=== PATIENT | female | born 1975 | race Caucasian/White ===

== ENCOUNTER 2016-12-20 18:43 | Emergency (ER) | payer MEDICARE, MEDICAID ==
[2016-12-20] MEDS ORDERED: Sodium Chloride 0.9% 10 ML Syringe FLUSH PRN (19:18)
[2016-12-20] MEDS ORDERED: HYDROmorphone 0.5 MG/0.5 ML Syringe IVPUSH ONE (19:32)
[2016-12-20] MEDS ORDERED: Famotidine 20 MG/2 ML SDV IVPUSH ONE (19:32)
[2016-12-20] MEDS ORDERED: Ondansetron 4 MG/2 ML SDV IVPUSH ONE (19:32)
[2016-12-20] MEDS ORDERED: Sodium Chloride 0.9% 1,000 ML IV SCH (19:45)
[2016-12-20] MEDS ORDERED: Metoclopramide 10 MG/2 ML SDV IVPUSH ONE (21:06)
[2016-12-20 21:37] VITALS: BP 124/96
--- NOTE | 2016-12-20 21:37 | EDM.PDOC ---
ED HPI GI/ABDOMINAL - General Chief Complaint: Abdominal Pain Stated Complaint: ABDOMINAL PAIN Time Seen by Provider: 12/20/16 19:16 Source of Information: Reports: Patient, RN notes reviewed - History of Present Illness INITIAL COMMENTS - FREE TEXT/NARRATIVE: 41-year-old female comes in with abdominal pain, nausea vomiting. Her symptoms started yesterday afternoon about 26 hours ago. She ate barbecued ribs yesterday noon and became ill about 2 or 3 hours later. She does have history of known gallbladder disease. He states her "ejection fraction" of the gallbladder is very low, she is actually scheduled for gallbladder surgery in about 2 weeks. When questioned about eating fatty food she made a comment along the line that is "they have not bothered me in the past" which is a bit hard to understand with her already having had extensive gallbladder workup. At any rate she became very ill after eating the ribs yesterday. She had onset of upper abdominal discomfort associated with nausea vomiting. Today she continues to be extremely nauseated. She states that time she has felt hungry and does try to eat but then has become worse after eating. She's not having diarrhea. She does not think she is constipated. She did have a BM earlier today. No fever or chills. - Related Data Allergies/ADRs: Allergies Allergy/AdvReac Type Severity Reaction Status Date / Time No Known Allergies Allergy Verified 06/30/16 07:16 Home Meds: Home Meds Celecoxib 200 mg PO DAILY 01/11/16 [History] Omeprazole 20 mg PO DAILY 01/11/16 [History] Propranolol HCl 60 mg PO BID 01/11/16 [History] Topiramate 25 mg PO BID 01/11/16 [History] traZODone HCl [Trazodone HCl] 200 mg PO DAILY 01/11/16 [History] Ondansetron [Zofran ODT] 4 mg PO Q6H #20 tab.dis 06/30/16 [Rx] Albuterol Sulfate [Proair Hfa] 2 inh PO QID PRN 12/20/16 [History] Budesonide/Formoterol Fumarate [Symbicort 160-4.5 Mcg Inhaler] 2 inh PO BID [History] Flunisolide [Aerospan] 5.1 gm IH DAILY 12/20/16 [History] Montelukast Sodium [Singulair] 10 mg PO DAILY 12/20/16 [History] oxyCODONE HCl/Acetaminophen [Percocet 5-325 mg Tablet] 1 each PO Q6H PRN [History] Past Medical History HEENT History: Reports: Allergic rhinitis, Sinusitis, Other (see below) Other HEENT History: glasses, partial and permanent bridge Cardiovascular History: Reports: High cholesterol Respiratory History: Reports: Bronchitis, recurrent, COPD Gastrointestinal History: Reports: Cholelithiasis, GERD, Irritable bowel syndrome Genitourinary History: Reports: UTI, recurrent, Other (see below) Other Genitourinary History: 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: Endometriosis, Fibroids, Other (see below) Other OB/BYN History: , miscarriage, ovarian cysts, fibroids, dysplasia, dysmenoorhea, heavy menses Other Musculoskeletal History: R foot pain, low back pain Neurological History: Reports: Migraines, Other (see below) Other Neuro History: course tremors Psychiatric History: Reports: Anxiety, Bipolar, Depression Dermatologic History: Reports: Other (see below) Other Dermatologic History: keloid scar - Past Surgical History Female Surgical History: Reports: Breast implant, D&C, Hysterectomy, Tubal ligation Social & Family History - Tobacco Use Smoking Status *Q: Current Every Day Smoker Years of Tobacco use: 30 Packs/Tins Daily: 1 Second Hand Smoke Exposure: Yes - Caffeine Use Caffeine Use: Reports: Coffee - Alcohol Use Days Per Week of Alcohol Use: 0 Number of Drinks Per Day: 0 Total Drinks Per Week: 0 - Recreational Drug Use Recreational Drug Use: No ED ROS GENERAL - Review of Systems Review Of Systems: See Below Constitutional: Reports: chills. Denies: fever HEENT: Denies: Throat pain Respiratory: Denies: Shortness of Breath, Pleuritic Chest Pain, Cough Cardiovascular: Denies: Chest pain GI/Abdominal: Reports: Abdominal pain (Upper abdominal primarily,in the mid abdominal as well), Nausea, Vomiting. Denies: Constipation, Diarrhea, Hematochezia, Melena Musculoskeletal: Denies: back pain (No major back discomfort), joint pain Skin: Reports: no symptoms Neurological: Reports: Dizziness (Mild) ED EXAM, GI/ABD - Physical Exam Exam: See Below General Appearance: alert, moderate distress Eyes: bilateral: normal appearance Throat/Mouth: Normal inspection, Normal oropharynx Head: atraumatic. No: facial swelling Neck: supple, full range of motion Respiratory/Chest: no respiratory distress, lungs clear, normal breath sounds Cardiovascular: regular rate, rhythm GI/Abdominal: soft, tenderness (Mild tenderness upper mid abdomen, right upper quadrant, periumbilical area of abdomen, lower abdomen soft and nontender). No : guarding, rebound Back Exam: No: CVA tenderness (L), CVA tenderness (R) Extremities: normal inspection, normal range of motion Neurological: alert, oriented, no motor/sensory deficits Skin Exam: Warm, Dry, Normal color Course - Vital Signs Last Recorded V/S: Last Vital Signs Temp 98.1 F 12/20/16 21:36 Pulse 76 12/20/16 21:36 Resp 18 12/20/16 21:36 BP 124/96 H 12/20/16 21:36 Pulse Ox 98 12/20/16 21:36 - Orders/Labs/Meds Orders: Active Orders 24 hr Category Date Time Status Peripheral IV Care [RC] . DIRECTED Care 12/20/16 19:19 Active Peripheral IV Insertion Adult [OM.PC] Stat Oth 12/20/16 19:19 Ordered Labs: Laboratory Tests 12/20/16 12/20/16 Range/Units 19:52 19:52 WBC 5.62 (3.98-10.04) K/mm3 RBC 4.78 (3.98-5.22) M/mm3 Hgb 13.8 (11.2-15.7) gm/L Hct 40.1 (34.1-44.9) % MCV 83.9 (79.4-94.8) fl MCH 28.9 (25.6-32.2) pg MCHC 34.4 (32.2-35.5) g/dl RDW Std Deviation 42.8 (36.4-46.3) fL Plt Count 294 (182-369) K/mm3 MPV 9.7 (9.4-12.3) fl Neut % (Auto) 53.2 (34.0-71.1) % Lymph % (Auto) 34.9 (19.3-51.7) % Citrus % (Auto) 9.4 (4.7-12.5) % Eos % (Auto) 2.1 (0.7-5.8) Baso % (Auto) 0.2 (0.1-1.2) % Neut # (Auto) 2.99 (1.56-6.13) K/mm3 Lymph # (Auto) 1.96 (1.18-3.74) K/mm3 Citrus # (Auto) 0.53 H (0.24-0.36) K/mm3 Eos # (Auto) 0.12 (0.04-0.36) K/mm3 Baso # (Auto) 0.01 (0.01-0.08) K/mm3 Sodium 139 (136-145) mEq/L Potassium 4.0 (3.5-5.1) mEq/L Chloride 105 (98-107) mEq/L Carbon Dioxide 24 (21-32) mEq/L Anion Gap 14.0 (5-15) BUN 13 (7-18) mg/dL Creatinine 0.8 (0.55-1.02) mg/dL Est Cr Clr Drug Dosing 78.30 mL/min Estimated GFR (MDRD) > 60 (>60) mL/min BUN/Creatinine Ratio 16.3 (14-18) Glucose 109 H (74-106) mg/dL Calcium 8.9 (8.5-10.1) mg/dL Total Bilirubin 0.5 (0.2-1.0) mg/dL GGT 18 (5-55) U/L AST 17 (15-37) U/L ALT 25 (14-59) U/L Alkaline Phosphatase 74 (46-116) U/L Total Protein 7.5 (6.4-8.2) g/dl Albumin 3.8 (3.4-5.0) g/dl Globulin 3.7 gm/dL Albumin/Globulin Ratio 1.0 (1-2) Lipase 87 (73-393) U/L Meds: Medications Discontinued Medications Generic Name Dose Route Start Last Admin Trade Name Freq PRN Reason Stop Dose Admin Famotidine 20 mg 12/20/16 19:32 12/20/16 20:04 Pepcid IVPUSH 12/20/16 19:33 20 mg ONETIME ONE Administration Hydromorphone HCl 0.5 mg 12/20/16 19:32 12/20/16 20:04 Dilaudid IVPUSH 12/20/16 19:33 Not Given ONETIME ONE Sodium Chloride 1,000 mls @ 999 mls/hr 12/20/16 19:45 12/20/16 21:23 Normal Saline IV 800 mls/hr ONETIME MARY Infusion Metoclopramide HCl 10 mg 12/20/16 21:06 12/20/16 21:19 Reglan IVPUSH 12/20/16 21:07 10 mg ONETIME ONE Administration Ondansetron HCl 4 mg 12/20/16 19:32 12/20/16 20:04 Zofran IVPUSH 12/20/16 19:33 4 mg ONETIME ONE Administration Sodium Chloride 10 ml 12/20/16 19:18 12/20/16 20:04 Saline Flush FLUSH 10 ml ASDIRECTED PRN Administration Keep Vein Open - Re-Assessments/Exams Free Text/Narrative Re-Assessment/Exam: 12/20/16 22:14 Labs digital come back relatively normal. As noted she does have documented gallbladder disease, scheduled to have her gallbladder out in about 2 weeks. It would seem that her current symptoms last evening and today are almost for sure gallbladder related. I am not going to repeat ultrasound of her gallbladder tonight with normal white blood count and other chemistries also normal at this time. She has been given 1 L of IV fluid, IV Zofran Pepcid and Reglan. She has not been vomiting here in the ED was still does feel somewhat nauseated. I will have her stick with clear liquids until tomorrow evening and she does need to do a better job of avoiding fatty food. This has been discussed at length with patient. Discharge instructions as documented. Departure - Departure Time of Disposition: 21:34 Disposition: Home, Self-Care 01 Condition: fair Clinical Impression: Abdominal pain, Vomiting Instructions: Nausea, Adult, Low-Fat Diet for Pancreatitis or Gallbladder Conditions Referrals: Kathy Nava, RAIL CAR PAINTER/SANDBLASTER [Primary Care Provider] - Forms: ED Department Discharge Additional Instructions: clear liquids only until tomorrow evening, than very careful bland diet as tolerated. You must avoid all fatty foods until you have your gallbladder surgery or you are going to get sick again. Zofran as previously prescribed q 6 to 8 hr as needed for any further nausea or vomiting. follow up clinic if not much better by Thursday, return to ED as needed. - My Orders Last 24 Hours: My Active Orders 12/20/16 19:19 Peripheral IV Care [RC] . DIRECTED Peripheral IV Insertion Adult [OM.PC] Stat - Assessment/Plan Last 24 Hours: My Active Orders 12/20/16 19:19 Peripheral IV Care [RC] . DIRECTED Peripheral IV Insertion Adult [OM.PC] Stat
== END 2016-12-20 21:40 | disposition home or self-care (01) ==
LOC: JD.ED 18:43
DX: R11.10 Vomiting, unspecified (principal); R10.11 Right upper quadrant pain; E78.00 Pure hypercholesterolemia, unspecified; J44.9 Chronic obstructive pulmonary disease, unspecified; K21.9 Gastro-esophageal reflux disease without esophagitis; F41.9 Anxiety disorder, unspecified; F31.9 Bipolar disorder, unspecified; F17.210 Nicotine dependence, cigarettes, uncomplicated; Z90.710 Acquired absence of both cervix and uterus; Z79.899 Other long term (current) drug therapy
CPT/HCPCS: 36415; 80053; 82977; 83690; 85025; 96361; 96374; 96375; 99284; J2405; J2765; J7040; J7050

== ENCOUNTER 2017-01-07 09:25 | Day surgery (SDC) | payer MEDICARE, MEDICAID ==
[~2017-01-07 09:25] MED LIST: Dexamethasone 4 MG/ML SDV ONE; HYDROmorphone 1 MG/ML Syringe ONE; Ketorolac 30 MG/ML SDV ONE; Lactated Ringers 1,000 ML ONE; Lidocaine 1% 6 ML ONE; Lidocaine 1%/Sod Bicarbonate in NS 8.4% 1 ML Syringe IV PRN; Midazolam 1 MG/ML 2 ML SDV ONE; Ondansetron 4 MG/2 ML SDV ONE; Propofol 200 MG/20 ML SDV ONE; Rocuronium 50 MG/5 ML Vial ONE; Sodium Chloride 0.9% 10 ML Syringe FLUSH PRN; ceFAZolin 1 GM Vial ONE; fentaNYL 250 MCG/5 ML SDV ONE
[2017-01-07] MEDS: Lactated Ringers 1,000 ML IV SCH ×2 (09:45→15:00)
[2017-01-07] MEDS ORDERED: Lidocaine 1% with EPINEPHrine 1:100,000 20 ML MDV ONE (10:20)
[2017-01-07] MEDS ORDERED: Bupivacaine 0.5%/EPINEPHrine 1:200,000 50 ML MDV ONE (10:20)
--- NOTE | 2017-01-07 10:25 | PCM.PREANE ---
Preanesthetic Assessment - Anesthesia/Transfusion/Family Hx Anesthesia History: Prior Anesthesia Without Reaction Family History of Anesthesia Reaction: No Transfusion History: No Prior Transfusion(s) Intubation History: Unknown - Review of Systems General: No Symptoms Pulmonary: No Symptoms (quit smoking 1 week ago.), Cough Cardiovascular: Palpitations, Dyspnea on Exertion, Lightheadedness (neurocardic syncope, has not passed out for one year.) Gastrointestinal: Diarrhea Neurological: No Symptoms, Headache, Numbness, Seizure (Approx 3 years ago.), Tingling (in patinet's heel bilaterally) Other: Reports: Easy Bruising, Sinus Problem, Neck Pain (C4-C5 bulging disk), Depression, Anxiety - Physical Assessment NPO Status Date: 01/06/17 NPO Status Time: 21:00 Pulse: 61 O2 Sat by Pulse Oximetry: 97 Respiratory Rate: 16 Blood Pressure: 122/76 Temperature: 36.5 C Vital Signs: Last Vital Signs Temp 36.5 C 01/07/17 09:30 Pulse 61 01/07/17 09:30 Resp 16 01/07/17 09:30 BP 122/76 01/07/17 09:30 Pulse Ox 97 01/07/17 09:30 Height: 1.63 m Weight: 103.873 kg ASA Class: 2 Mental Status: Alert & Oriented x3 Airway Class: Mallampati = 2 Dentition: Reports: Partial, Caries Thyro-Mental Finger Breadths: 3 Mouth Opening Finger Breadths: 3 ROM/Head Extension: Full Lungs: Clear to auscultation, Normal respiratory effort Cardiovascular: Regular Rate, Regular Rhythm - Lab Values: Reviewed and Noted. - Imaging/EKG Impressions: EKG: Sinus rhythm rate= 56, PVC's noted. Echocardiogram: report noted and reviewed. - Allergies Allergies/Adverse Reactions: Allergies Allergy/AdvReac Type Severity Reaction Status Date / Time No Known Allergies Allergy Verified 01/06/17 15:26 - Anesthesia Plan Pre-Op Medication Ordered: Beta Augusto Beta Augusto: Other (propranolol) Med Last Dose Date: 01/07/17 Med Last Dose Time: 08:00 - Acknowledgements Anesthesia Type Planned: General Anesthesia Pt an Appropriate Candidate for the Planned Anesthesia: Yes Alternatives and Risks of Anesthesia Discussed w Pt/Guardian: Yes Pt/Guardian Understands and Agrees with Anesthesia Plan: Yes PreAnesthesia Questionnaire HEENT History: Reports: Allergic rhinitis, Sinusitis, Other (see below) Other HEENT History: glasses, partial and permanent bridge Cardiovascular History: Reports: High cholesterol, Other (see below) Other Cardiovascular History: palpitations Respiratory History: Reports: Bronchitis, recurrent, COPD, SOB Gastrointestinal History: Reports: Cholelithiasis, GERD, Irritable bowel syndrome, Other (see below) Other Gastrointestinal History: RUQ pain, anorexia, nausea, epigastric pain, biliary dyskinesia Genitourinary History: Reports: UTI, recurrent, Other (see below) Other Genitourinary History: frequency, 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: Endometriosis, Fibroids, Other (see below) Other OB/BYN History: , miscarriage, ovarian cysts, fibroids, dysplasia, dysmenoorhea, heavy menses Musculoskeletal History: Reports: Arthritis Other Musculoskeletal History: R foot pain, low back pain, elbow pain, olecranon bursitis Neurological History: Reports: Migraines, Other (see below) Other Neuro History: essential tremor, migraine, neurcardiogenic pre-syncope, orthostatic lightheadedness Psychiatric History: Reports: Anxiety, Bipolar, Depression, Other (see below) Other Psychiatric History: insomnia Endocrine/Metabolic History: Reports: None Hematologic History: Reports: None Immunologic History: Reports: None Oncologic (Cancer) History: Reports: None Dermatologic History: Reports: Other (see below) Other Dermatologic History: keloid scar - Past Surgical History Head Surgeries/Procedures: Reports: None Female Surgical History: Reports: Breast implant, D&C, Hysterectomy, Tubal ligation - SUBSTANCE USE Smoking Status *Q: Current Every Day Smoker Tobacco Use Within Last Twelve Months: Cigarettes Second Hand Smoke Exposure: Yes Days Per Week of Alcohol Use: 0 Number of Drinks Per Day: 0 Total Drinks Per Week: 0 Recreational Drug Use History: No - HOME MEDS Home Medications: Home Meds Celecoxib 200 mg PO DAILY 01/11/16 [History] Omeprazole 20 mg PO DAILY 01/11/16 [History] Propranolol HCl 60 mg PO BID 01/11/16 [History] Topiramate 25 mg PO BID 01/11/16 [History] traZODone HCl [Trazodone HCl] 200 mg PO DAILY 01/11/16 [History] Albuterol Sulfate [Proair Hfa] 2 inh PO QID PRN 12/20/16 [History] Budesonide/Formoterol Fumarate [Symbicort 160-4.5 Mcg Inhaler] 2 inh PO BID [History] Flunisolide [Aerospan] 5.1 gm IH DAILY 12/20/16 [History] Montelukast Sodium [Singulair] 10 mg PO DAILY 12/20/16 [History] - CURRENT (IN HOUSE) MEDS Current Meds: Current Medications Lactated Ringer's (Ringers, Lactated) 1,000 mls @ 125 mls/hr IV ASDIRECTED MARY Stop: 01/07/17 23:00 Last Admin: 01/07/17 09:45 Dose: 125 mls/hr Lidocaine/Sodium Bicarbonate (Buffered Lidocaine 1% In Ns 8.4%) 0.25 ml IV ONETIME PRN PRN Reason: Prior to IV Start Stop: 01/07/17 18:00 Last Admin: 01/07/17 09:44 Dose: 0.25 ml Sodium Chloride (Saline Flush) 10 ml FLUSH ASDIRECTED PRN PRN Reason: Keep Vein Open Stop: 01/07/17 18:00 Discontinued Medications Cefazolin Sodium (Ancef) Confirm Administered Dose 2 gm .ROUTE .STK-MED ONE Stop: 01/07/17 07:10 Dexamethasone (Dexamethasone) Confirm Administered Dose 4 mg .ROUTE .STK-MED ONE Stop: 01/07/17 07:10 Fentanyl (Sublimaze) Confirm Administered Dose 250 mcg .ROUTE .STK-MED ONE Stop: 01/07/17 07:11 Hydromorphone HCl (Dilaudid) Confirm Administered Dose 1 mg .ROUTE .STK-MED ONE Stop: 01/07/17 07:12 Lidocaine HCl (Xylocaine-Mpf 1%) Confirm Administered Dose 6 mls @ as directed .ROUTE .STK-MED ONE Stop: 01/07/17 07:10 Lactated Ringer's (Ringers, Lactated) Confirm Administered Dose 1,000 mls @ as directed .ROUTE .STK-MED ONE Stop: 01/07/17 07:10 Ketorolac Tromethamine (Toradol) Confirm Administered Dose 60 mg .ROUTE .STK- MED ONE Stop: 01/07/17 07:10 Midazolam HCl (Versed 1 Mg/Ml) Confirm Administered Dose 2 mg .ROUTE .STK-MED ONE Stop: 01/07/17 07:12 Ondansetron HCl (Zofran) Confirm Administered Dose 4 mg .ROUTE .STK-MED ONE Stop: 01/07/17 07:10 Propofol (Diprivan 20 Ml) Confirm Administered Dose 200 mg .ROUTE .STK-MED ONE Stop: 01/07/17 07:10 Rocuronium [place] (Zemuron) Confirm Administered Dose 50 mg .ROUTE .STK-MED ONE Stop: 01/07/17 07:10
[2017-01-07] MEDS ORDERED: Ondansetron 4 MG/2 ML SDV IVPUSH PRN ×2 (11:12→15:15)
[2017-01-07] MEDS ORDERED: HYDROmorphone 1 MG/ML Syringe ONE (11:19)
[2017-01-07] MEDS ORDERED: Neostigmine Methylsulfate 1 MG/ML 5 ML Syringe ONE (11:26)
--- NOTE | 2017-01-07 11:48 | PCM.OPNOTE ---
[id number] cholecystectomy Findings: chronic inflammation of the gall bladder Pre Op Diagnosis: biliary colic Post-Op Diagnosis: chronic cholecystitis Anesthesia Technique: General ET tube, Local Primary Surgeon: Uriel Capps Pathology: gall bladder and contents EBL in mLs: 2 Complications: None Condition: Good Free Text/Narrative:: After adequate general endotracheal tube anesthesia was obtained the patient's abdomen was prepped and draped sterilely for a laparoscopic cholecystectomy. After local analgesia was given above the umbilicus. A curvilinear incision was made, down to the fascia. The fascia was entered sharply, followed by insertion of a 12 mm camera port. CO2 pneumoperitoneum was obtained. Exploration revealed a few adhesions between the omentum and the body of the gallbladder. 3 working ports were placed along the right costal margin. These ports were 5 mm in size. I grasped the gallbladder and retracted it and the liver in a cephalad direction. I then grasped Lesia's pouch then dissected out the cystic duct and cystic artery with the hook cautery. These structures were clipped in continuity with 5 mm clips, and divided with scissors. I took the gallbladder down in a retrograde fashion with the hook cautery and removed the gallbladder in the specimen bag through the umbilicus. The gallbladder bed was hemostatic with no bleeding or bile duct leaks seen. The bowel was intact. Air was removed , as I finished the procedure, which she tolerated well. Lead Clinical Research Coordinator photographs were taken for the patient and for the record. The supraumbilical port site was closed with a [id number] 0 Vicryl. Subcutaneous tissues and skin were closed with Vicryl as well. Steri-Strips and gauze were used for the dressing. There were no procedural complications.
--- NOTE | 2017-01-07 11:53 | PCM.POSTAN ---
POST ANESTHESIA ASSESSMENT - MENTAL STATUS Mental Status: alert - VITAL SIGNS Pulse Rate: 69 SaO2: 96 Resp Rate: 7 Blood Pressure: 145/76 Temperature: 36.2 C - RESPIRATORY Respiratory Status: respiratory rate WNL, airway patent, O2 saturation stable, supplemental oxygen - CARDIOVASCULAR CV Status: pulse rate WNL, blood pressure stable - GASTROINTESTINAL GI Status: no symptoms - POST OP HYDRATION Hydration Status: adequate & stable
[2017-01-07] MEDS ORDERED: fentaNYL 100 MCG/2 ML SDV IVPUSH PRN (12:15)
[2017-01-07] MEDS ORDERED: HYDROmorphone 0.5 MG/0.5 ML Syringe IVPUSH PRN (12:15)
[2017-01-07] MEDS ORDERED: Scopolamine 1.5 MG Transdermal Patch TRDERM ONE (13:12)
--- NOTE | 2017-01-07 13:12 | PCM48HPAN ---
Post Anesthesia Note - EVALUATION WITHIN 48HRS OF ANESTHETIC Vital Signs in Normal Range: Yes Patient Participated in Evaluation: Yes Respiratory Function Stable: Yes Airway Patent: Yes Cardiovascular Function Stable: Yes Hydration Status Stable: Yes Pain Control Satisfactory: Yes Nausea and Vomiting Control Satisfactory: No Mental Status Recovered: Yes - COMMENTS/OBSERVATIONS Free Text/Narrative:: Patient c/o dizziness and nausea. Patient medicated with zofran, and scopalamine patch ordered.
[2017-01-07] MEDS ORDERED: Acetaminophen/oxyCODONE 325-5 MG Tab PO ONE (14:00)
[2017-01-07] MEDS ORDERED: HYDROmorphone 1 MG/ML Syringe IVPUSH PRN (15:17)
[2017-01-07] MEDS ORDERED: Haloperidol Lactate 5 MG/ML SDV IVPUSH ONE (15:27)
--- NOTE | 2017-01-07 15:32 | PCM.SN ---
- Free Text/Narrative Note: 1528 patient complaining of dizziness and nausea. Dr. Capps informed and orders received for observation. Haldol 1ml ordered of nausea/vomiting. Report given to
[2017-01-07 15:57] VITALS: BP 125/75
== END 2017-01-07 19:00 | disposition home or self-care (01) ==
LOC: JD.SDS 09:25
PROVIDERS: ATTEND Surgery
DX: K81.1 Chronic cholecystitis (principal); J44.9 Chronic obstructive pulmonary disease, unspecified; G47.00 Insomnia, unspecified; F32.9 Major depressive disorder, single episode, unspecified; E78.00 Pure hypercholesterolemia, unspecified; G40.909 Epilepsy, unspecified, not intractable, without status epilepticus; F17.210 Nicotine dependence, cigarettes, uncomplicated; F41.9 Anxiety disorder, unspecified; K21.9 Gastro-esophageal reflux disease without esophagitis; K58.9 Irritable bowel syndrome, unspecified; G43.909 Migraine, unspecified, not intractable, without status migrainosus; Z79.899 Other long term (current) drug therapy; Z98.890 Other specified postprocedural states
CPT/HCPCS: 47562; 88304; 93005; A9270; J0690; J1100; J1170; J1630; J1885; J2250; J2405; J2710; J3010; J7120; 00790; J2704

== ENCOUNTER 2018-04-17 09:43 | Emergency (ER) | payer MEDICARE, MEDICAID ==
[2018-04-17 10:13] VITALS: BP 126/83
--- NOTE | 2018-04-17 10:46 | EDM.PDOC ---
ED HPI GENERAL MEDICAL PROBLEM - General Chief Complaint: Back Pain or Injury Stated Complaint: BACK PAIN Time Seen by Provider: 04/17/18 10:08 Source of Information: Reports: Patient History Limitations: Reports: No Limitations - History of Present Illness INITIAL COMMENTS - FREE TEXT/NARRATIVE: The patient presents with low back pain. The patient has been diagnosed with chronic low back pain and degenerative changes to her lumbar spine. She sees Kathy Nava and this week she saw Dr Snell the pain specialist in [place] and she got an injection in her back. The pain is a little worse today. She has no more pain going down her leg. She had some foul smelling urine but no dysuria or frequency. She has no fever or chills. She has no numbness or weakness. She has no problems having a bowel movement or urinating Onset: Gradual Duration: Day(s): Location: Reports: Back (left lower) Quality: Reports: Sharp Severity: Moderate Improves with: Reports: Immobilization Worsens with: Reports: Movement Associated Symptoms: Reports: No Other Symptoms Treatments MORTGAGE SPECIALIST: Reports: Other Medication(s) Lower Back Pain Score (Numeric/FACES): 9 - Related Data Allergies Allergy/AdvReac Type Severity Reaction Status Date / Time No Known Allergies Allergy Verified 04/17/18 10:12 Home Meds: Home Meds Celecoxib 200 mg PO DAILY 01/11/16 [History] Omeprazole 20 mg PO DAILY 01/11/16 [History] Propranolol HCl 60 mg PO BID 01/11/16 [History] Topiramate 25 mg PO BID 01/11/16 [History] traZODone HCl [Trazodone HCl] 200 mg PO DAILY 01/11/16 [History] Albuterol Sulfate [Proair Hfa] 2 inh PO QID PRN 12/20/16 [History] Budesonide/Formoterol Fumarate [Symbicort 160-4.5 Mcg Inhaler] 2 inh PO BID [History] Flunisolide [Aerospan] 5.1 gm IH DAILY 12/20/16 [History] Montelukast Sodium [Singulair] 10 mg PO DAILY 12/20/16 [History] Cyclobenzaprine [Flexeril] 10 mg PO TID PRN #20 tab 04/17/18 [Rx] Hydrocodone/Acetaminophen [Hydrocodon-Acetaminophen 5-325] 1 - 2 each PO Q6HR PRN #10 tablet 04/17/18 [Rx] Meloxicam 15 mg PO DAILY 04/17/18 [History] Mirabegron [Myrbetriq] 25 mg PO DAILY 04/17/18 [History] atorvaSTATin [Lipitor] 20 mg PO BEDTIME 04/17/18 [History] Past Medical History HEENT History: Reports: Allergic Rhinitis, Sinusitis, Other (See Below) Other HEENT History: glasses, partial and permanent bridge Cardiovascular History: Reports: High Cholesterol, Other (See Below) Other Cardiovascular History: palpitations Respiratory History: Reports: Bronchitis, Recurrent, COPD, SOB Gastrointestinal History: Reports: Cholelithiasis, GERD, Irritable Bowel Syndrome, Other (See Below) Other Gastrointestinal History: RUQ pain, anorexia, nausea, epigastric pain, biliary dyskinesia Genitourinary History: Reports: UTI, Recurrent, Other (See Below) Other Genitourinary History: frequency, HOWIE I CATH LAB MANAGER History: Reports: Endometriosis, Fibroids, Other (See Below) Other CATH LAB MANAGER History: , miscarriage, ovarian cysts, fibroids, dysplasia, dysmenoorhea, heavy menses Musculoskeletal History: Reports: Arthritis Other Musculoskeletal History: R foot pain, low back pain, elbow pain, olecranon bursitis Neurological History: Reports: Migraines, Other (See Below) Other Neuro History: essential tremor, migraine, neurcardiogenic pre-syncope, orthostatic lightheadedness Psychiatric History: Reports: Anxiety, Bipolar, Depression, Other (See Below) Other Psychiatric History: insomnia Endocrine/Metabolic History: Reports: None Hematologic History: Reports: None Immunologic History: Reports: None Oncologic (Cancer) History: Reports: None Dermatologic History: Reports: Other (See Below) Other Dermatologic History: keloid scar - Past Surgical History Head Surgeries/Procedures: Reports: None Female Surgical History: Reports: Breast Implant, D&C, Hysterectomy, Tubal Ligation Social & Family History - Tobacco Use Smoking Status *Q: Current Every Day Smoker Years of Tobacco use: 31 Packs/Tins Daily: 0.4 Used Tobacco, but Quit: No Second Hand Smoke Exposure: No - Caffeine Use Caffeine Use: Reports: Coffee, Tea - Recreational Drug Use Recreational Drug Use: No ED ROS GENERAL - Review of Systems Review Of Systems: See Below Constitutional: Reports: No Symptoms HEENT: Reports: No Symptoms Respiratory: Reports: No Symptoms Cardiovascular: Reports: No Symptoms Endocrine: Reports: No Symptoms GI/Abdominal: Reports: No Symptoms : Reports: No Symptoms Musculoskeletal: Reports: Back Pain (Left lower back) Skin: Reports: No Symptoms Neurological: Reports: No Symptoms ED EXAM,LOWER BACK PAIN/INJURY - Physical Exam Exam: See Below Exam Limited By: No Limitations General Appearance: Alert, No Apparent Distress Ears: Normal External Exam Nose: Normal Inspection Head: Atraumatic, Normocephalic Neck: Normal Inspection Respiratory/Chest: No Respiratory Distress, Lungs Clear, Normal Breath Sounds Cardiovascular: Regular Rate, Rhythm, No Edema, No Murmur GI/Abdominal: Soft, Non-Tender, No Organomegaly, No Mass Back Exam: Other (Mild pain upon palpation to the left upper low back) Neurological: Alert, No Motor/Sensory Deficits, Oriented x 3 Course - Vital Signs Last Recorded V/S: Last Vital Signs Temp 97.6 F 04/17/18 10:00 Pulse 63 04/17/18 10:00 Resp 18 04/17/18 10:00 BP 126/83 04/17/18 10:00 Pulse Ox 99 04/17/18 10:00 - Orders/Labs/Meds Orders: Active Orders 24 hr Category Date Time Status UA W/MICROSCOPIC [URIN] Stat Lab 04/17/18 10:41 Ordered Labs: Laboratory Tests 04/17/18 Range/Units 10:41 Urine Color Yellow (Yellow) Urine Appearance Slt cloudy H (Clear) Urine pH 8.5 H (5.0-8.0) Ur Specific [place] 1.015 (1.005-1.030) Urine Protein 2+ H (Negative) Urine Glucose (UA) Negative (Negative) Urine Ketones Negative (Negative) Urine Occult Blood Negative (Negative) Urine Nitrite Negative (Negative) Urine Bilirubin Negative (Negative) Urine Urobilinogen 0.2 (0.2-1.0) Ur Leukocyte Esterase Negative (Negative) Urine RBC 0-5 (0-5) /hpf Urine WBC 0-5 (0-5) /hpf Ur Epithelial Cells 10-20 H (0-5) /hpf Urine Bacteria Rare (FEW) /hpf Urine Mucus Not seen (FEW) /hpf - Re-Assessments/Exams Free Text/Narrative Re-Assessment/Exam: 04/17/18 10:45 I ordered a UA. 04/17/18 11:22 Her UA looks good. I will get her on some flexeril and a few hydrocodone. Departure - Departure Time of Disposition: 11:25 Disposition: Home, Self-Care 01 Condition: Good Clinical Impression: Low back pain Qualifiers: Chronicity: acute Back pain laterality: left Sciatica presence: without sciatica Qualified Code(s): M54.5 - Low back pain - Discharge Information *PRESCRIPTION DRUG MONITORING PROGRAM REVIEWED*: No *COPY OF PRESCRIPTION DRUG MONITORING REPORT IN PATIENT JAYSON: No Prescriptions: Hydrocodone/Acetaminophen [Hydrocodon-Acetaminophen 5-325] 1 - 2 each PO Q6HR PRN #10 tablet PRN Reason: Pain Cyclobenzaprine [Flexeril] 10 mg PO TID PRN #20 tab PRN Reason: Pain Referrals: Kathy Nava, RECREATION OFFICER [Primary Care Provider] - Forms: ED Department Discharge Additional Instructions: Take the flexeril and hydrocodone as needed for pain. Follow up with Kathy Nava as needed. Please return if you are worse. - My Orders Last 24 Hours: My Active Orders 04/17/18 10:41 UA W/MICROSCOPIC [URIN] Stat - Assessment/Plan Last 24 Hours: My Active Orders 04/17/18 10:41 UA W/MICROSCOPIC [URIN] Stat
== END 2018-04-17 11:35 | disposition home or self-care (01) ==
LOC: JD.ED 09:43
DX: M54.5 Low back pain (principal); E78.00 Pure hypercholesterolemia, unspecified; F41.9 Anxiety disorder, unspecified; F32.9 Major depressive disorder, single episode, unspecified; F17.210 Nicotine dependence, cigarettes, uncomplicated; Z87.440 Personal history of urinary (tract) infections; Z79.899 Other long term (current) drug therapy
CPT/HCPCS: 81001; 99283

== ENCOUNTER 2021-04-30 09:53 | Emergency (ER) | payer MEDICARE, MEDICAID ==
[2021-04-30 10:08] VITALS: BP 148/86; PULSE 76
--- NOTE | 2021-04-30 10:14 | EDM.PDOC ---
ED HPI GENERAL MEDICAL PROBLEM - General Chief Complaint: Upper Extremity Injury/Pain Stated Complaint: LEFT THUMB PAIN Time Seen by Provider: 04/30/21 10:14 Source of Information: Reports: Patient History Limitations: Reports: No Limitations - History of Present Illness INITIAL COMMENTS - FREE TEXT/NARRATIVE: 46-year-old female presents to the ED with painful left thumb. She reports yesterday morning that she was adjusting herself on a chair and lifting her body weight and her left thumb she believes became hyperextended during this event. She felt a pop and tearing sensation in the left thumb particular around the first MCP joint and radiates up towards the IP joint. This morning the left thumb is much more painful and swollen than it was yesterday morning. She slept fairly well. She has not taken any medication for pain this morning. Onset: Sudden Onset Date: 04/29/21 Onset Time: 08:00 Duration: Hour(s):, Constant, Getting Worse (24 hours) Location: Reports: Upper Extremity, Left Quality: Reports: Ache (Left thumb injury primarily first MCP joint), Throbbing Severity: Moderate Improves with: Reports: Rest Worsens with: Reports: Movement Context: Reports: Trauma (Hyperextension of the left thumb yesterday morning). Denies: Activity, Exercise, Lifting, Sick Contact Associated Symptoms: Reports: No Other Symptoms ( accidentally.) Treatments ETHOLOGIST: Reports: Other (see below) (None.) Left Finger-Thumb Pain Score (Numeric/FACES): 3 - Related Data Allergies Allergy/AdvReac Type Severity Reaction Status Date / Time No Known Allergies Allergy Verified 04/30/21 10:08 Home Meds: Home Meds Diclofenac Sodium [Voltaren] 75 mg PO BIDMEALS #10 tab.cr 04/30/21 [Rx] Past Medical History HEENT History: Reports: Allergic Rhinitis, Sinusitis, Other (See Below) Other HEENT History: glasses, partial and permanent bridge Cardiovascular History: Reports: Heart Murmur, High Cholesterol, Other (See Below) Other Cardiovascular History: palpitations Respiratory History: Reports: Bronchitis, Recurrent, COPD, SOB Gastrointestinal History: Reports: Cholelithiasis, GERD, Irritable Bowel Syndrome, Other (See Below) Other Gastrointestinal History: biliary dyskinesia Genitourinary History: Reports: UTI, Recurrent, Other (See Below) Other Genitourinary History: urinary frequency, HOWIE I MANAGER UTILITIES History: Reports: Endometriosis, Fibroids, , Other (See Below) Other MANAGER UTILITIES History: , miscarriage, ovarian cysts, fibroids, dysplasia, dysmenorrhea, heavy menses Musculoskeletal History: Reports: Arthritis, Other (See Below) Other Musculoskeletal History: olecranon bursitis Neurological History: Reports: Migraines, Other (See Below) Other Neuro History: essential tremor, migraine, neurcardiogenic pre-syncope, orthostatic lightheadedness Psychiatric History: Reports: Anxiety, Bipolar, Depression, Other (See Below) Other Psychiatric History: insomnia Endocrine/Metabolic History: Reports: Obesity/BMI 30+ Hematologic History: Reports: None Immunologic History: Reports: None Oncologic (Cancer) History: Reports: None Dermatologic History: Reports: Other (See Below) Other Dermatologic History: keloid scar - Past Surgical History GI Surgical History: Reports: Cholecystectomy, Colonoscopy Female Surgical History: Reports: Breast Biopsy, Breast Implant, D&C, Hysterectomy, Other (See Below) Other Female Surgeries/Procedures: partial hysterectomy Oncologic Surgical History: Reports: Biopsy of Breast Social & Family History - Tobacco Use Tobacco Use Status *Q: Former Tobacco User Years of Tobacco use: 35 Used Tobacco, but Quit: Yes Month/Year Tobacco Last Used: 09/2017 - Caffeine Use Caffeine Use: Reports: Coffee, Soda - Recreational Drug Use Recreational Drug Use: No - Living Situation & Occupation Living situation: Reports: Occupation: Disabled Review of Systems - Review of Systems Review Of Systems: See Below Constitutional: Reports: No Symptoms Eyes: Reports: Glasses Ears: Reports: No Symptoms Nose: Reports: No Symptoms Mouth/Throat: Reports: No Symptoms Respiratory: Reports: Shortness of Breath, Wheezing. Denies: Pleuritic Chest Pain (History of asthma COPD), Cough, Sputum Cardiovascular: Reports: Other (Known cardiac murmur.). Denies: Chest Pain, Edema, Irregular Heart Rate GI/Abdominal: Reports: Other Genitourinary: Reports: Other (History of irritable bowel syndrome frequent UTIs.) Musculoskeletal: Reports: Other (Thirty changes neck back knees and hips.) Skin: Reports: No Symptoms Neurological: Reports: Headache (Headaches) Psychiatric: Reports: Other (History of bipolar affective disorder) ED EXAM, GENERAL - Physical Exam Exam: See Below Exam Limited By: No Limitations General Appearance: Alert, WD/WN, No Apparent Distress, Other (Temperature is 36.4 degrees. Heart rate seventy-six and sinus. Respiratory to sixteen with O2 sats of 95% room air. BP 148/86) Eye Exam: Bilateral Eye: Normal Inspection (No scleral icterus or blepharal pallor.), PERRL Extremities: Joint Swelling (First MCP joint left thumb. Mobility decreased due to swelling), Other (Examination was limited primarily to her left thumb. There is marked swelling and increased warmth around the first MCP joint of her left thumb. There is also bruising and thickening due to swelling within the thenar eminence. She still has fairly good opposition of the thumb to the fifth finger wit) Neurological: Alert, Oriented, CN II-XII Intact, Normal Cognition Psychiatric: Normal Affect, Normal Mood Skin Exam: Warm, Dry, Intact, Normal Color, No Rash Course - Vital Signs Last Recorded V/S: Last Vital Signs Temp 36.4 C 04/30/21 10:06 Pulse 76 04/30/21 10:06 Resp 16 04/30/21 10:06 BP 148/86 H 04/30/21 10:06 Pulse Ox 94 L 04/30/21 10:06 - Orders/Labs/Meds Orders: Active Orders 24 hr Category Date Time Status Fingers Thumb Lt FA [CR] Stat Exams 04/30/21 10:17 Taken - Radiology Interpretation Free Text/Narrative:: 46-year-old female presents to the ED with painful left thumb. She states that she was adjusting her weight while seated on a chair yesterday morning when she felt pain and tearing sensation left thumb and believes she hyperextended her thumb when she shifted her weight. There was some immediate swelling and pain but it increased dramatically over the last 24 hours. Examination reveals increased warmth coming from the first MCP joint with marked swelling of around the first MCP joint and swelling within the thenar eminence. No extensor tendinitis elicited. Plan x-ray left thumb. - Re-Assessments/Exams Free Text/Narrative Re-Assessment/Exam: 04/30/21 10:50 x-rays of the left thumb were obtained and do not reveal any fractures. There is mild degenerative arthritic change within the intraphalangeal joint. No corner fracture identified within the first MCP joint to account for increased swelling and increased warmth. Plan I will place her in a Gadiel wrap to immobilize her thumb for the next [address] her on Voltaren 75 mg twice daily for the next 5 days to reduce pain and inflammation. She was advised it will probably take 10 to 12 days for this injury to completely resolve. She will follow up with primary care provider if any further problems occur. Departure - Departure Time of Disposition: 10:51 Disposition: Home, Self-Care 01 Condition: Fair Clinical Impression: Left thumb sprain Qualifiers: Encounter type: initial encounter Sprain of finger site: metacarpophalangeal joint Qualified Code(s): S63.642A - Sprain of metacarpophalangeal joint of left thumb, initial encounter - Discharge Information *PRESCRIPTION DRUG MONITORING PROGRAM REVIEWED*: Not Applicable *COPY OF PRESCRIPTION DRUG MONITORING REPORT IN PATIENT JAYSON: Not Applicable Prescriptions: Diclofenac Sodium [Voltaren] 75 mg PO BIDMEALS #10 tab.cr Instructions: Thumb Sprain Referrals: Kathy Nava COMMUNITY LEADER [Primary Care Provider] - Forms: ED Department Discharge Additional Instructions: Evaluation in the emergency room this morning in regards to acute injury to the left thumb that occurred yesterday morning. Examination reveals increased warmth and marked swelling of the first MCP joint of your left thumb as well as pain and swelling in the thenar muscles on the palmar aspect of the hand. These muscles help move the thumb. Examination is suspicious for a hyperextension injury. X-rays of the left thumb were done to rule out a fracture and no fractures were identified. Treatment is time to heal. Gadiel wrap applied to immobilize the left thumb for the next 3 days and then leave it off. Start to regain range of motion of thumb once the swelling has gone down. Suggest use of Voltaren 75 mg twice daily with breakfast and supper for the next 5 days to reduce pain and inflammation and swelling of the left thumb. Follow-up with personal care provider if not completely back to normal in 14 days time. Sepsis Event Note (ED) - Evaluation Sepsis Screening Result: No Definite Risk - Focused Exam Vital Signs: Vital Signs Temp Pulse Resp BP Pulse Ox 04/30/21 10:06 36.4 C 76 16 148/86 H 94 L - My Orders Last 24 Hours: My Active Orders 04/30/21 10:17 Fingers Thumb Lt FA [CR] Stat - Assessment/Plan Last 24 Hours: My Active Orders 04/30/21 10:17 Fingers Thumb Lt FA [CR] Stat
--- NOTE | 2021-04-30 11:28 | CR ---
Left thumb: 3 views of the left thumb were obtained. Comparison: No prior left thumb study. Joint spaces are preserved. No acute fracture, dislocation or other bony abnormality is appreciated. Impression: 1. Nothing acute is seen on left thumb study. Diagnostic code #1
== END 2021-04-30 11:02 | disposition home or self-care (01) ==
LOC: JD.ED 09:53
DX: S63.642A Sprain of metacarpophalangeal joint of left thumb, initial encounter (principal); J44.9 Chronic obstructive pulmonary disease, unspecified; E66.9 Obesity, unspecified; Z68.41 Body mass index [BMI] 40.0-44.9, adult; Z87.891 Personal history of nicotine dependence; X58.XXXA Exposure to other specified factors, initial encounter
CPT/HCPCS: 73140-26-FA; 73140-FA; 99283; 99283-25

== ENCOUNTER 2023-03-01 16:40 | Emergency (ER) | payer MEDICAID, MEDICARE ==
[2023-03-01 17:36] VITALS: BP 135/88; PULSE 72
== END 2023-03-01 17:31 | disposition home or self-care (01) ==
LOC: JD.ED 16:40
DX: M26.621 Arthralgia of right temporomandibular joint (principal); J44.9 Chronic obstructive pulmonary disease, unspecified; E66.9 Obesity, unspecified; Z68.41 Body mass index [BMI] 40.0-44.9, adult; Z87.891 Personal history of nicotine dependence
CPT/HCPCS: 99282; 99283

== ENCOUNTER 2024-06-01 06:55 | Day surgery (SDC) | payer MEDICARE ==
[~2024-06-01 06:55] MED LIST changes: -Dexamethasone 4 MG/ML SDV ONE; -HYDROmorphone 1 MG/ML Syringe ONE; -Ketorolac 30 MG/ML SDV ONE; -Lactated Ringers 1,000 ML ONE; -Lidocaine 1% 6 ML ONE; -Lidocaine 1%/Sod Bicarbonate in NS 8.4% 1 ML Syringe IV PRN; -Midazolam 1 MG/ML 2 ML SDV ONE; -Ondansetron 4 MG/2 ML SDV ONE; -Propofol 200 MG/20 ML SDV ONE; -Rocuronium 50 MG/5 ML Vial ONE; -ceFAZolin 1 GM Vial ONE; -fentaNYL 250 MCG/5 ML SDV ONE
[2024-06-01] MEDS: Lactated Ringers 1,000 ML IV SCH (07:15)
[2024-06-01] MEDS ORDERED: Propofol 200 MG/20 ML SDV ONE ×9 (07:41→08:57)
[2024-06-01] MEDS ORDERED: Lidocaine 2% 5 ML SDV ONE (07:42)
[2024-06-01] MEDS ORDERED: Sodium Chloride 0.9% 10 ML Syringe FLUSH SCH (09:00)
[2024-06-01] MEDS ORDERED: Ketorolac 15 MG/ML SDV ONE ×2 (09:01)
[2024-06-01] MEDS: Bupivacaine 0.5% 30 ML SDV ONE (09:04)
[2024-06-01 10:15] VITALS: BP 120/78; PULSE 70
== END 2024-06-01 10:15 ==
LOC: JD.SDS 06:55
PROVIDERS: ATTEND Surgery
DX: D12.0 Benign neoplasm of cecum (principal); K29.51 Unspecified chronic gastritis with bleeding; K21.01 Gastro-esophageal reflux disease with esophagitis, with bleeding; K64.4 Residual hemorrhoidal skin tags; K64.8 Other hemorrhoids; J44.9 Chronic obstructive pulmonary disease, unspecified; I10 Essential (primary) hypertension; F31.9 Bipolar disorder, unspecified; F41.9 Anxiety disorder, unspecified; E78.00 Pure hypercholesterolemia, unspecified; Z87.891 Personal history of nicotine dependence; Z79.899 Other long term (current) drug therapy
CPT/HCPCS: 00813; J0665; J1885; J2704; J3490; J7120

== ENCOUNTER 2024-12-04 09:13 | Emergency (ER) | payer MEDICARE ==
[2024-12-04 09:54] LABS: BASOPHILS PERCENT AUTO 0.4 % (0.0-1.0); EOSINOPHILS ABSOLUTE AUTO 0.1 K/mm3 (0.0-0.4); HEMATOCRIT 43.2 % (37.0-47.0); IMMATURE GRAN ABSOLUTE AUTO 0.02 K/mm3 (0.00-0.05); IMMATURE GRAN PERCENT AUTO 0.4 % (0.0-0.4); LYMPHOCYTES ABSOLUTE AUTO 1.7 K/mm3 (1.0-4.8); LYMPHOCYTES PERCENT AUTO 30.9 % (24.0-44.0); MEAN CORPUSCULAR HEMOGLOBIN 27.9 pg (28.0-32.0); MEAN CORPUSCULAR HGB CONC 32.4 g/dl (32.0-36.0); MEAN CORPUSCULAR VOLUME 86.2 fl (83.0-99.0); MEAN PLATELET VOLUME 10.8 fl (9.4-12.3); MONOCYTES ABSOLUTE AUTO 0.4 K/mm3 (0.0-0.8); MONOCYTES PERCENT AUTO 7.4 % (0.0-8.0); NEUTROPHILS ABSOLUTE AUTO 3.2 K/mm3 (1.8-7.7); NEUTROPHILS PERCENT AUTO 58.9 % (41.0-71.0); PLATELET COUNT,PLT 291 K/mm3 (150-400); RED BLOOD CELL COUNT 5.01 M/mm3 (4.10-5.30); WHITE BLOOD CELL COUNT,WBC 5.44 K/mm3 (3.9-11.3)
[2024-12-04] MEDS: Iopamidol 755 Mg/ML 100 ML Bottle IVPUSH ONE (10:10)
[2024-12-04] MEDS: Sodium Chloride 0.9% 10 ML Syringe FLUSH ONE (10:11)
[2024-12-04] MEDS: Sodium Chloride 0.9% 100 ML IV SCH (10:11)
[2024-12-04 10:31] LABS: A/G RATIO 0.7 (1-2); ALANINE AMINOTRANSFERASE,ALT 22 U/L (14-59); ALBUMIN 3.1 g/dl (3.4-5.0); ALKALINE PHOSPHATASE 78 U/L (46-116); ANION GAP 12.9 (5-15); ASPARTATE AMNIOTRANSFERASE,AST 15 U/L (15-37); BILIRUBIN TOTAL 0.4 mg/dL (0.2-1.0); BLOOD UREA NITROGEN,BUN 8 mg/dL (7-18); C-REACTIVE PROTEIN 0.83 mg/dL (<0.30); CARBON DIOXIDE,CO2 26 mEq/L (21-32); CHLORIDE,CL 104 mEq/L (98-107); CREATININE 0.8 mg/dL (0.55-1.02); EST CRCL DRUG DOSING (CG) 71.84 mL/min; ESTIMATED GFR 89 mL/min (>60); GLUCOSE RANDOM 101 mg/dL (70-99); MAGNESIUM 1.7 mg/dL (1.8-2.4); POTASSIUM,K 3.9 mEq/L (3.5-5.1); PROTEIN TOTAL,TP 7.3 g/dl (6.4-8.2); SODIUM,NA 139 mEq/L (136-145); TROPONIN I HIGH SENSITIVITY < 4 pg/mL (<=51)
[2024-12-04 13:08] VITALS: BP 145/91; PULSE 69
== END 2024-12-04 12:15 | disposition home or self-care (01) ==
LOC: JD.ED 09:13
DX: J32.9 Chronic sinusitis, unspecified (principal); E78.00 Pure hypercholesterolemia, unspecified; Z79.899 Other long term (current) drug therapy
CPT/HCPCS: 36415; 70450; 70496; 70498; 80053; 82947; 83735; 84484; 85025; 86140; 93005; 99284; Q9967; 93010

== ENCOUNTER 2025-02-01 06:08 | Day surgery (SDC) | payer MEDICARE ==
[~2025-02-01 06:08] MED LIST changes: +Sodium Chloride 0.9% 10 ML Syringe FLUSH SCH
[2025-02-01] MEDS: Lactated Ringers 1,000 ML IV SCH (07:05)
[2025-02-01] MEDS ORDERED: propofoL 500 MG/50 ML 50 ML ONE (07:36)
[2025-02-01] MEDS ORDERED: Lidocaine 2% 5 ML SDV ONE (07:38)
[2025-02-01] MEDS ORDERED: Propofol 200 MG/20 ML SDV ONE (08:44)
[2025-02-01] MEDS ORDERED: Ondansetron 4 MG/2 ML SDV ONE (08:57)
[2025-02-01 10:45] VITALS: BP 126/84; PULSE 83
== END 2025-02-01 10:35 | disposition home or self-care (01) ==
LOC: JD.SDS 06:08
PROVIDERS: ATTEND Surgery
DX: K57.31 Diverticulosis of large intestine without perforation or abscess with bleeding (principal); K64.8 Other hemorrhoids; Z86.0100 Personal history of colon polyps, unspecified; J44.9 Chronic obstructive pulmonary disease, unspecified; E78.00 Pure hypercholesterolemia, unspecified; K21.9 Gastro-esophageal reflux disease without esophagitis
CPT/HCPCS: 43239; 45378; J2003; J2405; J2704; J7120; 00813; 88305